=== PATIENT | female | born 1960 | race Caucasian/White ===

== ENCOUNTER 2016-04-17 03:50 | Emergency (ER) | payer OTHER ==
[2016-04-17] MEDS ORDERED: KETOROLAC 30 MG/ML 1 ML VIAL IVP STA ×2 (04:14→05:11)
[2016-04-17] MEDS ORDERED: SODIUM CHLORIDE 0.9% 1,000 ML IV STA (04:14)
--- NOTE | 2016-04-17 04:17 | ED ---
Abdominal Pain HPI - General Chief Complaint: Abdominal Pain Stated Complaint: left side/abd pain, sob Time Seen by Provider: 04/17/16 04:00 Source: patient, RN notes reviewed Mode of arrival: ambulatory Limitations: no limitations - History of Present Illness Initial Comments: This is a 55-year-old female who had the onset of left-sided flank pain yesterday. She states that get better got worse today. She states it's sharp and dull stabbing in nature. 10/10 severity associated with some sweats with it comes on it is episodic. She denies any cough or phlegm production no dysuria hematuria no history of diverticular disease though she had a colonoscopy in the past and states that she may be prone to it. No other complaints at this time. MD Complaint: abdominal pain, flank pain - Related Data Previous Rx's Medication Instructions Recorded Dicyclomine HCl [Bentyl] 20 mg PO QID #20 tab 04/17/16 Orphenadrine [Norflex] 100 mg PO Q12H #7 tablet.er 04/17/16 Allergies Allergy/AdvReac Type Severity Reaction Status Date / Time codeine Allergy Unknown Verified 12/06/15 11:51 Childhood Penicillins Allergy Unknown Verified 12/06/15 11:51 Childhood Review of Systems ROS Statement: Those systems with pertinent positive or pertinent negative responses have been documented in the HPI. ROS Other: All systems not noted in ROS Statement are negative. Past Medical History Past Medical History: No Reported History Additional Past Medical History / Comment(s): SEE DR DEL TORO'S HISTORY AND PHYSICAL History of Any Multi-Drug Resistant Organisms: None Reported Past Surgical History: Appendectomy Additional Past Surgical History / Comment(s): VEIN STRIPPING surgery, COLONOSCOPY Past Anesthesia/Blood Transfusion Reactions: No Reported Reaction Additional Past Anesthesia/Blood Transfusion Reaction / Comment(s): NEVER RECIEVED BLOOD. Past Psychological History: No Psychological Hx Reported Additional Psychological History / Comment(s): PT LIVES AT HOME WITH HANG. SHE DOES NOT WORK OUTSIDE THE HOME. SHE IS INDEPENDENT. SHE DRIVES A CAR. Smoking Status: Never smoker Past Alcohol Use History: Occasional Past Drug Use History: None Reported - Past Family History Father Family Medical History: Cancer Additional Family Medical History / Comment(s): HODGKINS LYMPHOMA Mother Family Medical History: No Reported History General Exam - General Exam Comments Initial Comments: This is a well-developed well-nourished awake alert oriented x3 female Limitations: no limitations General appearance: alert, in no apparent distress Head exam: Present: atraumatic, normocephalic, normal inspection Eye exam: Present: normal appearance, PERRL, EOMI. Absent: scleral icterus, conjunctival injection, periorbital swelling ENT exam: Present: normal exam, mucous membranes moist Neck exam: Present: normal inspection. Absent: tenderness, meningismus, lymphadenopathy Respiratory exam: Present: normal lung sounds bilaterally. Absent: respiratory distress, wheezes, rales, rhonchi, stridor Cardiovascular Exam: Present: regular rate, normal rhythm, normal heart sounds. Absent: systolic murmur, diastolic murmur, rubs, gallop, clicks GI/Abdominal exam: Present: soft, tenderness (And is palpation over left flank and left upper quadrant and midabdomen about her guarding no rebound), normal bowel sounds. Absent: distended, guarding, rebound, rigid, bruit, pulsatile mass, hernia Rectal exam: Present: deferred Extremities exam: Present: normal inspection, full ROM, normal capillary refill. Absent: tenderness, pedal edema, joint swelling, calf tenderness Back exam: Present: normal inspection, full ROM. Absent: CVA tenderness (R), CVA tenderness (L), muscle spasm, paraspinal tenderness, vertebral tenderness, rash noted Neurological exam: Present: alert, oriented X3, CN II-XII intact Psychiatric exam: Present: normal affect, normal mood Skin exam: Present: warm, dry, intact, normal color. Absent: rash Course Vital Signs 04/17/16 03:54 Temperature 97.2 F L Pulse Rate 99 Respiratory 18 Rate Blood Pressure 141/93 O2 Sat by Pulse 93 L Oximetry Medical Decision Making - Medical Decision Making I did have a long discussion with the patient and her regarding the findings the findings are likely secondary to some spastic colon though a musculoskeletal origin as not ruled out. Patient would like to go home she'll be discharged with instructions to continue with the Aleve as stated also some muscle relaxers oral fluids follow-up with her doctor and return when necessary - Lab Data Result diagrams: 04/17/16 04:04 04/17/16 04:04 Lab Results 01/30/17 01/30/17 01/30/17 Range/Units 04:04 04:04 04:04 WBC 5.4 (3.8-10.6) k/uL RBC 5.04 (3.80-5.40) m/uL Hgb 15.9 (11.4-16.0) gm/dL Hct 46.7 H (34.0-46.0) % MCV 92.7 (80.0-100.0) fL MCH 31.6 (25.0-35.0) pg MCHC 34.1 (31.0-37.0) g/dL RDW 13.0 (11.5-15.5) % Plt Count 132 L (150-450) k/uL Neutrophils % 68 % Lymphocytes % 19 % Monocytes % 8 % Eosinophils % 2 % Basophils % 0 % Neutrophils # 3.7 (1.3-7.7) k/uL Lymphocytes # 1.1 (1.0-4.8) k/uL Monocytes # 0.4 (0-1.0) k/uL Eosinophils # 0.1 (0-0.7) k/uL Basophils # 0.0 (0-0.2) k/uL Sodium 139 (137-145) mmol/L Potassium 3.8 (3.5-5.1) mmol/L Chloride 102 (98-107) mmol/L Carbon Dioxide 24 (22-30) mmol/L Anion Gap 13 mmol/L BUN 17 (7-17) mg/dL Creatinine 0.60 (0.52-1.04) mg/dL Est GFR (MDRD) Af Amer >60 (>60 ml/min/1.73 sqM) Est GFR (MDRD) Non-Af >60 (>60 ml/min/1.73 sqM) Glucose 126 H (74-99) mg/dL Calcium 9.3 (8.4-10.2) mg/dL Total Bilirubin 1.5 H (0.2-1.3) mg/dL AST 32 (14-36) U/L ALT 56 H (9-52) U/L Alkaline Phosphatase 88 (38-126) U/L Total Creatine Kinase 94 (30-135) U/L CK-MB (CK-2) 2.8 H* (0.0-2.4) ng/mL CK-MB (CK-2) Rel Index 3.0 Troponin I <0.012 (0.000-0.034) ng/mL Total Protein 7.4 (6.3-8.2) g/dL Albumin 4.4 (3.5-5.0) g/dL Amylase 47 (30-110) U/L Lipase 87 (23-300) U/L Urine Color Urine Appearance (Clear) Urine pH (5.0-8.0) Ur Specific Mitchell (1.001-1.035) Urine Protein (Negative) Urine Glucose (UA) (Negative) Urine Ketones (Negative) Urine Blood (Negative) Urine Nitrate (Negative) Urine Bilirubin (Negative) Urine Urobilinogen (<2.0) mg/dL Ur Leukocyte Esterase (Negative) Urine RBC (0-5) /hpf Urine WBC (0-5) /hpf Ur Squamous Epith Cells (0-4) /hpf Urine Mucus (None) /hpf 04/17/16 Range/Units 04:04 WBC (3.8-10.6) k/uL RBC (3.80-5.40) m/uL Hgb (11.4-16.0) gm/dL Hct (34.0-46.0) % MCV (80.0-100.0) fL MCH (25.0-35.0) pg MCHC (31.0-37.0) g/dL RDW (11.5-15.5) % Plt Count (150-450) k/uL Neutrophils % % Lymphocytes % % Monocytes % % Eosinophils % % Basophils % % Neutrophils # (1.3-7.7) k/uL Lymphocytes # (1.0-4.8) k/uL Monocytes # (0-1.0) k/uL Eosinophils # (0-0.7) k/uL Basophils # (0-0.2) k/uL Sodium (137-145) mmol/L Potassium (3.5-5.1) mmol/L Chloride (98-107) mmol/L Carbon Dioxide (22-30) mmol/L Anion Gap mmol/L BUN (7-17) mg/dL Creatinine (0.52-1.04) mg/dL Est GFR (MDRD) Af Amer (>60 ml/min/1.73 sqM) Est GFR (MDRD) Non-Af (>60 ml/min/1.73 sqM) Glucose (74-99) mg/dL Calcium (8.4-10.2) mg/dL Total Bilirubin (0.2-1.3) mg/dL AST (14-36) U/L ALT (9-52) U/L Alkaline Phosphatase (38-126) U/L Total Creatine Kinase (30-135) U/L CK-MB (CK-2) (0.0-2.4) ng/mL CK-MB (CK-2) Rel Index Troponin I (0.000-0.034) ng/mL Total Protein (6.3-8.2) g/dL Albumin (3.5-5.0) g/dL Amylase (30-110) U/L Lipase (23-300) U/L Urine Color Yellow Urine Appearance Clear (Clear) Urine pH 5.5 (5.0-8.0) Ur Specific Mitchell 1.018 (1.001-1.035) Urine Protein Trace H (Negative) Urine Glucose (UA) Negative (Negative) Urine Ketones Negative (Negative) Urine Blood Trace H (Negative) Urine Nitrate Negative (Negative) Urine Bilirubin Negative (Negative) Urine Urobilinogen <2.0 (<2.0) mg/dL Ur Leukocyte Esterase Negative (Negative) Urine RBC <1 (0-5) /hpf Urine WBC 1 (0-5) /hpf Ur Squamous Epith Cells 5 H (0-4) /hpf Urine Mucus Rare H (None) /hpf - Radiology Data Radiology results: report reviewed (I did review the imaging and report there was some evidence of some inflammation around the descending colon some diverticulosis with noted no other significant findings.), image reviewed Disposition Clinical Impression: Abdominal pain, Spastic colon Disposition: HOME SELF-CARE Condition: Good Instructions: Abdominal Pain (ED), Irritable Bowel Syndrome (ED) Prescriptions: Dicyclomine HCl [Bentyl] 20 mg PO QID #20 tab Orphenadrine [Norflex] 100 mg PO Q12H #7 tablet.er
[2016-04-17 04:28] LABS: Basophils % (A) 0 %; CH 32.2; CHCM 34.9; Eosinophils # (A) 0.1 k/uL (0-0.7); Eosinophils % (A) 2 %; HCT 46.7 % (34.0-46.0); HDW 2.24; HGB 15.9 gm/dL (11.4-16.0); Luc # (Auto) 0.15; Luc % (Auto) 3; Lymphocytes # (A) 1.1 k/uL (1.0-4.8); Lymphocytes % (A) 19 %; MCH 31.6 pg (25.0-35.0); MCHC 34.1 g/dL (31.0-37.0); MCV 92.7 fL (80.0-100.0); Mean Platelet Volume 6.9; Monocytes # (A) 0.4 k/uL (0-1.0); Monocytes % (A) 8 %; Neutrophils # (A) 3.7 k/uL (1.3-7.7); Neutrophils % (A) 68 %; RBC 5.04 m/uL (3.80-5.40); WBC 5.4 k/uL (3.8-10.6); WBC (Perox) 5.55
[2016-04-17 04:40] LABS: ALT 56 U/L (9-52); AST 32 U/L (14-36); Alkaline Phosphatase 88 U/L (38-126); Amylase 47 U/L (30-110); Anion Gap 13 mmol/L; Blood Urea Nitrogen 17 mg/dL (7-17); Calcium 9.3 mg/dL (8.4-10.2); Carbon Dioxide 24 mmol/L (22-30); Chloride 102 mmol/L (98-107); Glucose 126 mg/dL (74-99); Non-African American GFR(MDRD) >60 (>60 ml/min/1.73 sqM); Potassium 3.8 mmol/L (3.5-5.1); Sodium 139 mmol/L (137-145); Total Bilirubin 1.5 mg/dL (0.2-1.3); Total Protein 7.4 g/dL (6.3-8.2)
--- NOTE | 2016-04-17 04:43 | XR ---
EXAMINATION TYPE: XR chest 2V DATE OF EXAM: 04/17/2016 4:35 AM COMPARISON: NONE HISTORY: Abdominal pain TECHNIQUE: Frontal and lateral views of the chest are obtained. FINDINGS: Heart and mediastinum are normal. Lungs are clear of consolidation. There is small linear density in the left lower lobe. There is no pleural effusion. Bony thorax is intact. IMPRESSION: Minimal subsegmental atelectasis in the left lower lobe. Normal heart.
--- NOTE | 2016-04-17 04:44 | XR ---
EXAMINATION TYPE: XR KUB DATE OF EXAM: 04/17/2016 4:35 AM COMPARISON: NONE HISTORY: Left-sided abdomen pain TECHNIQUE: 2 views FINDINGS: There is no sign of intestinal obstruction or pneumoperitoneum. Fecal pattern is normal. Th ere are no pathologic calcifications over the kidneys. Lung bases are clear. IMPRESSION: Nonacute abdomen.
[2016-04-17 04:54] LABS: Appearance,Urine Clear (Clear); Bilirubin,Urine Negative (Negative); Creatine Kinase 94 U/L (30-135); Glucose,Urine (UA) Negative (Negative); Ketones,Urine Negative (Negative); Leukocyte Esterase,Urine Negative (Negative); Mucus,Urine Rare /hpf; Nitrite,Urine Negative (Negative); PH, Urine 5.5 (5.0-8.0); Particle Count 2502; Protein,Urine Trace (Negative); RBC,Urine <1 /hpf (0-5); Specific Gravity,Urine 1.018 (1.001-1.035); Squamous Epithelial Cell,Urine 5 /hpf (0-4); UA Billing (MACRO vs. MICRO) MICRO; Urobilinogen,Urine <2.0 mg/dL (<2.0); WBC,Urine 1 /hpf (0-5)
[2016-04-17 05:06] LABS: Troponin I <0.012 ng/mL (0.000-0.034)
--- NOTE | 2016-04-17 05:17 | CT ---
EXAMINATION TYPE: CT abdomen pelvis wo con DATE OF EXAM: 04/17/2016 5:11 AM COMPARISON: NONE HISTORY: Left sided abd pain, hx: appendectomy CT DLP: 266.40 mGycm Automated exposure control for dose reduction was used. TECHNIQUE: Helical acquisition of images was performed from the lung bases through the pelvis. FINDINGS: Lung bases are clear of consolidation. There is no pleural effusion. Heart size is normal. There is a small hiatal hernia. Liver spleen pancreas gallbladder appear normal. Bile ducts are not dilated. There is no adrenal mass . Kidneys have normal size and contour. There is no hydronephrosis. There are some mild inflammatory changes around the descending colon. There are left colon diverticula. There is sigmoid moderate dive rticulosis. There is no free fluid. There is no evidence of a pelvic mass. Bladder distends smoothly. Appendix is not seen. There is no sign of appendicitis. IMPRESSION: THERE IS EVIDENCE OF FOCAL DIVERTICULITIS IN THE MID DESCENDING COLON. MODERATE COLONIC DIVERTICULOSI S. NO EVIDENCE OF RENAL STONE OR OBSTRUCTION.
[2016-04-17 05:35] LABS: Creatine Kinase MB 2.8 ng/mL (0.0-2.4)
[2016-04-17] MEDS ORDERED: ACETAMINOPHEN IV (For NPO) 1,000 MG in SALINE 1 100ML.BAG IVPB STA (06:01)
[2016-04-17] MEDS ORDERED: DICYCLOMINE 10 MG/ML 2 ML AMP IM STA (06:02)
[2016-04-17 07:15] VITALS: BP 129/74; PULSE 77; RESP 16; TEMP 98
== END 2016-04-17 07:00 | disposition home or self-care (01) ==
LOC: EC 03:50
DX: K57.30 Diverticulosis of large intestine without perforation or abscess without bleeding (principal); Z88.0 Allergy status to penicillin; Z88.5 Allergy status to narcotic agent; Z79.899 Other long term (current) drug therapy
CPT/HCPCS: 99284; 96372; 96374; 96376; 96361; 36415; 80053; 82150; 82550; 82553; 83690; 84484; 85025; 81001; 71020; 74000; 74176; J0500; J1885; J0131

== ENCOUNTER → 2017-11-03 | Outpatient (CLI) | payer OTHER ==
--- NOTE | 2017-11-03 09:58 | XR ---
EXAMINATION TYPE: XR ankle complete LT DATE OF EXAM: 11/03/2017 CLINICAL HISTORY: Pain, swelling, and limited movement for a few days. TECHNIQUE: Frontal, lateral and oblique images of the left ankle are obtained. COMPARISON: None. FINDINGS: There is no acute fracture/dislocation evident in the left ankle. The ankle mortise appea rs within normal limits. Mild spurring from the lateral malleolus is present. The overlying soft tis mateusz appears unremarkable. IMPRESSION: There is no acute fracture or dislocation in the left ankle. No significant soft tissue swelling noted.
== END | disposition home or self-care (01) ==
LOC: RADXRMAIN 08:46
PROVIDERS: ATTEND Physician Assistant
DX: M25.572 Pain in left ankle and joints of left foot (principal)

== ENCOUNTER → 2018-03-14 | Outpatient (CLI) | payer OTHER ==
--- NOTE | 2018-03-14 08:12 | CT ---
EXAMINATION TYPE: CT chest wo con DATE OF EXAM: 03/14/2018 COMPARISON: Chest 02/14/2018 HISTORY: 57-year-old female Fluid in lungs, severe coughing TECHNIQUE: Contiguous axial scanning of the chest without IV contrast. Coronal and sagittal reconstru ctions performed. CT DLP: 308.5 mGycm Automated exposure control for dose reduction was used. FINDINGS: Heart normal size without pericardial effusion. The upper descending thoracic aorta is borderline ectatic at 3.0 cm. There is conventional arterial s upply and anatomy. A few small mediastinal lymph nodes are noted. No thoracic lymphadenopathy by CT size criteria. Visualized upper abdomen shows marked fatty infiltration of the liver and sludge in the gallbladder l umen. Evaluation of the lungs shows minimal biapical pleural parenchymal scarring. The central airways are clear. No consolidation or pleural effusion. No abnormal interstitial thickening. Bones: No osseous destructive process. IMPRESSION: NO SPECIFIC ABNORMALITY IDENTIFIED OF THE CHEST. MARKED HEPATIC STEATOSIS. CORRELATE WITH LFT's, LIPI D PROFILE, AND PATIENT RISK FACTORS.
== END | disposition home or self-care (01) ==
LOC: RADCTMAIN 06:57
PROVIDERS: ATTEND Family Medicine
DX: R05 Cough (principal)
CPT/HCPCS: 71250

== ENCOUNTER → 2018-03-16 | Outpatient (CLI) | payer OTHER ==
[2018-03-16 08:30] LABS: Basophils % (A) 1 %; Eosinophils # (A) 0.2 k/uL (0-0.7); Eosinophils % (A) 3 %; HCT 49.7 % (34.0-46.0); HGB 16.4 gm/dL (11.4-16.0); Lymphocytes % (A) 20 %; MCH 31.8 pg (25.0-35.0); MCV 96.5 fL (80.0-100.0); Mean Platelet Volume 7.6; Monocytes # (A) 0.3 k/uL (0-1.0); Monocytes % (A) 5 %; Neutrophils # (A) 3.2 k/uL (1.3-7.7); Neutrophils % (A) 68 %; Platelet Count 127 k/uL (150-450); RBC 5.15 m/uL (3.80-5.40); RDW 13.9 % (11.5-15.5); WBC 4.7 k/uL (3.8-10.6)
[2018-03-16 17:02] LABS: Anion Gap 8.5 mmol/L (4.00-12.00); Calcium 9.3 mg/dL (8.7-10.3); Carbon Dioxide 24.5 mmol/L (21.6-31.8); Potassium 4.5 mmol/L (3.5-5.5)
[2018-03-18 03:13] LABS: Mycoplasma IgM Antibody 0.11 INDEX (<=0.90)
== END | disposition home or self-care (01) ==
LOC: LABWHC1 08:04
PROVIDERS: ATTEND Nurse Practitioner Family
DX: R05 Cough (principal)
CPT/HCPCS: 36415; 80048; 85025; 86738

== ENCOUNTER → 2018-03-23 | Outpatient (CLI) | payer OTHER ==
[2018-03-23 08:33] LABS: Basophils % (A) 1 %; Eosinophils # (A) 0.1 k/uL (0-0.7); Eosinophils % (A) 1 %; HCT 50.7 % (34.0-46.0); HGB 16.4 gm/dL (11.4-16.0); Lymphocytes % (A) 28 %; MCH 31.8 pg (25.0-35.0); MCHC 32.4 g/dL (31.0-37.0); Monocytes # (A) 0.7 k/uL (0-1.0); Monocytes % (A) 11 %; Neutrophils # (A) 4.1 k/uL (1.3-7.7); Neutrophils % (A) 58 %; RBC 5.17 m/uL (3.80-5.40); RDW 13.9 % (11.5-15.5)
[2018-03-23 08:52] LABS: Platelet Count 198 k/uL (150-450)
[2018-03-23 17:13] LABS: Albumin 4.6 g/dL (3.80-4.90); Albumin/Globulin Ratio 2.42 (1.20-2.10); Anion Gap 13.4 mmol/L (4.00-12.00); Calcium 9.7 mg/dL (8.7-10.3); Carbon Dioxide 27.6 mmol/L (21.6-31.8); Globulin 1.9 g/dL (1.6-3.3); Potassium 4.6 mmol/L (3.5-5.5); Total Bilirubin 1.5 mg/dL (0.2-1.2); Total Protein 6.5 g/dL (6.2-8.2)
== END | disposition home or self-care (01) ==
LOC: LABWHC1 08:01
PROVIDERS: ATTEND Family Medicine
DX: R05 Cough (principal); I10 Essential (primary) hypertension
CPT/HCPCS: 36415; 80053; 85025

== ENCOUNTER → 2018-03-27 | Outpatient (CLI) | payer OTHER ==
[2018-03-27 17:18] LABS: Hepatitis A Antibody IgM Non-Reactive (Non-Reactive); Hepatitis B Core IgM Non-Reactive (Non-Reactive)
[2018-03-27 18:26] LABS: Albumin 4.7 g/dL (3.80-4.90); Albumin/Globulin Ratio 2.61 (1.20-2.10); Bilirubin, Conjugated 0.3 mg/dL (0.20-0.40); Bilirubin,Unconjugated 1.1 mg/dL; Globulin 1.8 g/dL (1.6-3.3); Total Bilirubin 1.4 mg/dL (0.3-1.2); Total Protein 6.5 g/dL (6.2-8.2)
== END | disposition home or self-care (01) ==
LOC: LABWHC1 08:01
PROVIDERS: ATTEND Family Medicine
DX: R74.8 Abnormal levels of other serum enzymes (principal)
CPT/HCPCS: 36415; 80074; 80076; 82977

== ENCOUNTER → 2018-04-06 | Outpatient (CLI) | payer OTHER ==
[2018-04-06 17:05] LABS: Total Bilirubin 1.1 mg/dL (0.3-1.2)
== END | disposition home or self-care (01) ==
LOC: LABWHC1 08:17
PROVIDERS: ATTEND Family Medicine
DX: R79.89 Other specified abnormal findings of blood chemistry (principal)
CPT/HCPCS: 36415; 82247; 82977; 84450; 84460

== ENCOUNTER → 2018-04-23 | Outpatient (CLI) | payer OTHER | END | disposition home or self-care (01) | LOC: LABWHC1 08:23 | PROVIDERS: ATTEND Family Medicine | DX: R74.8 Abnormal levels of other serum enzymes (principal) | CPT/HCPCS: 36415; 84450; 84460 ==

== ENCOUNTER → 2018-05-09 | Outpatient (CLI) | payer OTHER ==
[2018-05-09 18:12] LABS: ALT 51 U/L (8-44); AST 40 U/L (13-35)
== END | disposition home or self-care (01) ==
LOC: LABWHC1 09:26
PROVIDERS: ATTEND Family Medicine
DX: R74.8 Abnormal levels of other serum enzymes (principal)
CPT/HCPCS: 36415; 84450; 84460

== ENCOUNTER → 2018-05-31 | Outpatient (CLI) | payer OTHER ==
[2018-05-31 09:28] LABS: Basophils % (A) 0 %; Eosinophils # (A) 0.1 k/uL (0-0.7); Eosinophils % (A) 1 %; HCT 45.1 % (34.0-46.0); HGB 14.8 gm/dL (11.4-16.0); Lymphocytes # (A) 1.7 k/uL (1.0-4.8); Lymphocytes % (A) 25 %; MCH 31.2 pg (25.0-35.0); MCHC 32.8 g/dL (31.0-37.0); MCV 95.2 fL (80.0-100.0); Mean Platelet Volume 6.5; Monocytes # (A) 0.5 k/uL (0-1.0); Monocytes % (A) 8 %; Neutrophils # (A) 4.4 k/uL (1.3-7.7); Neutrophils % (A) 64 %; Platelet Count 232 k/uL (150-450); RBC 4.74 m/uL (3.80-5.40); RDW 13.5 % (11.5-15.5); WBC 6.9 k/uL (3.8-10.6)
[2018-05-31 16:56] LABS: LDL Cholesterol,Calculated 89.4 mg/dL (0.0-131.0); VLDL Calculation 20.6 mg/dL (5.00-40.00)
== END | disposition home or self-care (01) ==
LOC: LABWHC1 08:22
PROVIDERS: ATTEND Family Medicine
DX: E78.00 Pure hypercholesterolemia, unspecified (principal); R94.5 Abnormal results of liver function studies
CPT/HCPCS: 36415; 80061; 82103; 84450; 84460; 85025

== ENCOUNTER → 2018-06-28 | Outpatient (CLI) | payer OTHER ==
[2018-06-28 08:03] LABS: ALT 56 U/L (9-52); AST 28 U/L (14-36)
--- NOTE | 2018-06-28 10:30 | BD ---
EXAMINATION TYPE: Axial Bone Density DATE OF EXAM: 06/28/2018 COMPARISON: NONE CLINICAL HISTORY: Height: 5 FT 6 IN Weight: 158 FRAX RISK QUESTIONS: RISK FACTORS HISTORY OF: Active: YES Postmenopausal woman: AGE [age] MEDICATIONS: Prednisone or other steroids: PREDISONE How Lon MONTHS Additional Medications: PREDISONE FOR LAST 2 MONTHS FOR A COUGH ,AMLODIPINE Additional History: EXAM MEASUREMENTS: Bone mineral densitometry was performed using the [employer]. Bone mineral density as measured about the Lumbar spine is: ----- L1-L4(G/cm2): 1.235 T Score Values are as follows: ----- L2: 0.4 ----- L3: 0.8 ----- L4: 0.3 ----- L1-L4: 0.5 BASELINE Bone mineral density about the R hip (g/cm2): 0.973 Bone mineral density about the L hip (g/cm2): 0.965 T Score values are as follows: -----R Neck: -0.5 -----L Neck: -0.5 -----R Total: -0.3 -----L Total: -0.6 BASELINE IMPRESSION: No evidence for osteoporosis or osteopenia. NOTE: T-SCORE=SD OF THE YOUNG ADULT MEAN.
--- NOTE | 2018-07-01 12:09 | MM ---
Reason for exam: screening (asymptomatic). Last mammogram was performed 2 years and 6 months ago. History: Patient is postmenopausal. Benign MG stereo VAD BX addl LT of the left breast, April 20, 2015. Benign MG stereo VAD BX LT of the left breast, April 20, 2015. Physical Findings: A clinical breast exam by your physician is recommended on an annual basis and results should be correlated with mammographic findings. MG 3D Screening Mammo W/Cad Bilateral CC and MLO view(s) were taken. Prior study comparison: December 31, 2015, left breast MG diagnostic mammo LT w CAD. April 08, 2015, left breast MG 3d work up w/cad LT. March 29, 2015, bilateral MG screening mammo w CAD. The breast tissue is heterogeneously dense. This may lower the sensitivity of mammography. Previous mammotome biopsy in the left breast x 2. Asymmetric breast tissue in the right medial breast, suspect clips. There is no discrete abnormality. ASSESSMENT: Benign, BI-RAD 2 RECOMMENDATION: Routine screening mammogram of both breasts in 1 year.
== END | disposition home or self-care (01) ==
LOC: RADMAMWWP 06:59
PROVIDERS: ATTEND Family Medicine
DX: Z12.31 Encounter for screening mammogram for malignant neoplasm of breast (principal); R74.8 Abnormal levels of other serum enzymes; Z13.820 Encounter for screening for osteoporosis
CPT/HCPCS: 36415; 77063; 77067; 77080; 84450; 84460

== ENCOUNTER → 2018-10-31 | Outpatient (CLI) | payer OTHER ==
[2018-10-31 10:17] LABS: Basophils % (A) 1 %; Eosinophils # (A) 0.1 k/uL (0-0.7); Eosinophils % (A) 2 %; HCT 48.4 % (34.0-46.0); HGB 15.7 gm/dL (11.4-16.0); Lymphocytes % (A) 23 %; MCHC 32.5 g/dL (31.0-37.0); MCV 95.4 fL (80.0-100.0); Mean Platelet Volume 7.5; Monocytes # (A) 0.4 k/uL (0-1.0); Monocytes % (A) 9 %; Neutrophils # (A) 2.6 k/uL (1.3-7.7); Neutrophils % (A) 62 %; Platelet Count 109 k/uL (150-450); RBC 5.07 m/uL (3.80-5.40); RDW 13.5 % (11.5-15.5); WBC 4.3 k/uL (3.8-10.6)
[2018-10-31 15:57] LABS: African American GFR (CKD) 112.3 (60.0-200.0); Albumin 4.6 g/dL (3.80-4.90); Albumin/Globulin Ratio 2.42 (1.60-3.17); Anion Gap 8.4 mmol/L (4.00-12.00); BUN/Creat Ratio 22.86 Ratio (12.00-20.00); Calcium 9.3 mg/dL (8.7-10.3); Carbon Dioxide 26.6 mmol/L (21.6-31.8); Globulin 1.9 g/dL (1.6-3.3); Total Bilirubin 1.1 mg/dL (0.2-1.2); Total Protein 6.5 g/dL (6.2-8.2)
== END | disposition home or self-care (01) ==
LOC: LABWHC1 09:27
PROVIDERS: ATTEND Family Medicine
DX: K76.89 Other specified diseases of liver (principal)
CPT/HCPCS: 36415; 80053; 85025

== ENCOUNTER → 2018-11-07 | Outpatient (CLI) | payer OTHER ==
[2018-11-07 10:24] LABS: Mean Platelet Volume 7.7; Platelet Count 117 k/uL (150-450)
[2018-11-07 15:44] LABS: ALT 68 U/L (8-44); AST 47 U/L (13-35)
== END | disposition home or self-care (01) ==
LOC: LABWHC1 09:39
PROVIDERS: ATTEND Family Medicine
DX: R74.8 Abnormal levels of other serum enzymes (principal); D72.819 Decreased white blood cell count, unspecified
CPT/HCPCS: 36415; 80074; 82977; 84450; 84460; 85049

== ENCOUNTER → 2018-11-14 | Outpatient (CLI) | payer OTHER ==
--- NOTE | 2018-11-14 07:41 | US ---
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 GLAND SIZE: Right Lobe: 4.2 x 0.9 x 1.4 cm Overall Parenchyma: homogenous Left Lobe: 3.9 x 0.9 x 1.2 cm Overall Parenchyma: homogeneous Isthmus Thickness: 0.2cm NODULES RIGHT: # of nodules measured on right: 1 1. 0.6 x 0.9 x 0.5 centimeter hypoechoic solid nodule at the lower pole with poorly defined margins . This nodule is taller than wide and shows no intranodular vascularity. Prior size: no prior LEFT: # of nodules measured on left: 0 ISTHMUS: # of nodules measured in the isthmus: 0 Bilateral neck scanned, no evidence of lymphadenopathy. IMPRESSION: Solitary 9 mm solid right thyroid nodule for which surveillance thyroid ultrasound is recommended in 12 months.
== END | disposition home or self-care (01) ==
LOC: RADUSWWP 07:01
PROVIDERS: ATTEND Family Medicine
DX: E04.1 Nontoxic single thyroid nodule (principal); F45.8 Other somatoform disorders
CPT/HCPCS: 76536

== ENCOUNTER 2019-02-08 11:06 | Emergency (ER) | payer OTHER ==
[2019-02-08] MEDS ORDERED: LIDOCAINE 5% PATCH TOPICAL STA (11:37)
[2019-02-08] MEDS ORDERED: KETOROLAC 30 MG/ML 1 ML VIAL IM STA (11:41)
--- NOTE | 2019-02-08 11:44 | ED ---
General Adult HPI - General Chief complaint: Extremity Injury, Lower Stated complaint: Fall-Ankle Injury Time Seen by Provider: 02/08/19 11:21 Source: patient Mode of arrival: wheelchair Limitations: no limitations - History of Present Illness Initial comments: Dictation was produced using [employer] dictation software. please excuse any g rammatical, word or spelling errors. Chief Complaint: 58-year-old male presents with right calf pain. History of Present Illness: Chin is a 58-year-old female. Yesterday she was carrying a large bin of [place] decorations on the stairs. She got to the last step when she stumbled slightly. Patient planted her right foot on the ground vigorously. After that incident she noticed that she had some right- sided calf pain. Patient localizes the pain to the right lateral calf area. Patient said able to bear weight on it. Denies any rating symptoms. Patient denies any pain of the Achilles area. She does complain of some tenderness to the right lateral ankle. She has no foot pain. The numbness and paresthesias of the foot. Denies any swelling to the leg. No popliteal pain. The ROS documented in this emergency department record has been reviewed and confirmed by me. Those systems with pertinent positive or negative responses have been documented in the HPI. All other systems are other negative and/or noncontributory. PHYSICAL EXAM: General Impression: Alert and oriented x3, not in acute distress HEENT: Normocephalic atraumatic, extra-ocular movements intact, pupils equal and reactive to light bilaterally, mucous membranes moist. Cardiovascular: Heart regular rate and rhythm, S1&S2 audible, no murmurs, rubs or gallops Chest: Lungs clear to auscultation bilaterally, no rhonchi, no wheeze, no rales Abdomen: Bowel sounds present, abdomen soft, non-tender, non-distended, no organomegaly Musculoskeletal: Pulses present and equal in all extremities, no peripheral edema Right lower extremity: Tenderness to the right lateral gastrocnemius muscle. Plantar flexion is intact. No swelling of the right leg compared to the left. Mild tenderness over the anterior talofibular ligament. No midfoot tenderness. Motor: no focal deficits noted Neurological: CN II-XII grossly intact, no focal motor or sensory deficits noted Skin: Intact with no visualized rashes Psych: Normal affect and mood ED course: 58 year old female presents with clinical presentation consistent with right calf strain and right ankle sprain. Vital signs upon arrival shows heart rate 102, rest of vital signs within acceptable limits. Right tib-fib x-ray shows probably distress fracture of the proximal third fibula. Right ankle is unremarkable. Patient is placed in a splint. Patient told to remain nonweightbearing until evaluated by orthopedic surgeon. Patient warned of symptoms of compartment syndrome. Return parameters discussed. Patient clear for discharge. She has a set of crutches at home that she can use. - Related Data Previous Rx's Medication Instructions Recorded Dicyclomine HCl [Bentyl] 20 mg PO QID #20 tab 04/17/16 Orphenadrine [Norflex] 100 mg PO Q12H #7 tablet.er 04/17/16 Allergies Allergy/AdvReac Type Severity Reaction Status Date / Time codeine Allergy Unknown Verified 12/06/15 11:51 Childhood Penicillins Allergy Unknown Verified 12/06/15 11:51 Childhood Review of Systems ROS Statement: Those systems with pertinent positive or pertinent negative responses have been documented in the HPI. ROS Other: All systems not noted in ROS Statement are negative. Past Medical History Past Medical History: No Reported History Additional Past Medical History / Comment(s): SEE DR DEL TORO'S HISTORY AND PHYSICAL History of Any Multi-Drug Resistant Organisms: None Reported Past Surgical History: Appendectomy Additional Past Surgical History / Comment(s): VEIN STRIPPING surgery, COLONOSCOPY Past Anesthesia/Blood Transfusion Reactions: No Reported Reaction Additional Past Anesthesia/Blood Transfusion Reaction / Comment(s): NEVER RECIEVED BLOOD. Past Psychological History: No Psychological Hx Reported Smoking Status: Never smoker Past Alcohol Use History: Occasional Past Drug Use History: None Reported - Past Family History Father Family Medical History: Cancer Additional Family Medical History / Comment(s): HODGKINS LYMPHOMA Mother Family Medical History: No Reported History General Exam Limitations: no limitations Course Vital Signs 02/08/19 11:11 Temperature 97.8 F Pulse Rate 102 H Respiratory 20 Rate Blood Pressure 157/99 O2 Sat by Pulse 94 L Oximetry Disposition Clinical Impression: Fibula fracture Disposition: HOME SELF-CARE Condition: Good Instructions (If sedation given, give patient instructions): Leg Fracture (ED) Is patient prescribed a controlled substance at d/c from ED?: No Referrals: [facility] [Provider Group] - 1-2 days Time of Disposition: 13:39
--- NOTE | 2019-02-08 13:24 | XR ---
EXAMINATION TYPE: XR tibia fibula RT, XR ankle complete RT DATE OF EXAM: 02/08/2019 COMPARISON: NONE HISTORY: Right ankle pain TECHNIQUE: 2 views right tibia/fibula. 3 views right ankle. FINDINGS/IMPRESSION: Right tibia/fibula: Mildly displaced oblique fracture of the proximal third fibular diaphysis. No tib ial fracture. Right ankle: No fracture about the ankle. Cortical irregularity of the lateral distal malleoli appear s chronic. Ankle mortise is congruent. Mild capsular distention at the ankle.
[2019-02-08 13:57] VITALS: BP 145/99; PULSE 97; RESP 19; TEMP 97.9
== END 2019-02-08 13:55 | disposition home or self-care (01) ==
LOC: EC 11:06
DX: S82.431A Displaced oblique fracture of shaft of right fibula, initial encounter for closed fracture (principal); Z88.0 Allergy status to penicillin; Z88.5 Allergy status to narcotic agent; W10.9XXA Fall (on) (from) unspecified stairs and steps, initial encounter
CPT/HCPCS: 73590; 73610; 99283; 29515; 96372; J1885

== ENCOUNTER → 2019-04-10 | Outpatient (CLI) | payer OTHER ==
--- NOTE | 2019-04-10 10:19 | CT ---
EXAMINATION TYPE: CT angio chest DATE OF EXAM: 04/10/2019 COMPARISON: 03/14/2018 HISTORY: Thoracic Aortic Aneurysm, without rupture CT DLP: 174.6 mGycm CONTRAST: CTA thoracic aorta with 3-D reconstruction is performed and with IV Contrast, patient injected with 8 0 mL of Isovue 370. Contrast CTA of the thoracic aorta was performed from the lung apex through the upper abdomen. 3D re construction imaging obtained at a separate workstation. CT Chest: THORACIC AORTA: No evidence for thoracic aortic aneurysm. Mild atheromatous changes seen. There is n o evidence for dissection or periaortic collection. LUNGS: The lungs are clear and free of infiltrate or atelectasis. No pulmonary nodule or mass is det ected. No pleural effusion or CT evidence of interstitial lung disease. MEDIASTINUM: No evidence for mediastinal hematoma. The heart is not enlarged. No evidence for med iastinal mass or adenopathy. HILAR STRUCTURES: No evidence for mass. No hilar adenopathy is appreciated. OTHER: No significant abnormality. IMPRESSION- No evidence for aneurysm.
== END | disposition home or self-care (01) ==
LOC: RADCTMAIN 09:13
PROVIDERS: ATTEND Surgery
DX: I71.2 Thoracic aortic aneurysm, without rupture (principal); Z88.0 Allergy status to penicillin; Z88.5 Allergy status to narcotic agent
CPT/HCPCS: 71275; Q9967

== ENCOUNTER → 2019-05-16 | Outpatient (CLI) | payer OTHER ==
--- NOTE | 2019-05-16 07:59 | US ---
EXAMINATION TYPE: US thyroid st tissue head/neck DATE OF EXAM: 05/16/2019 COMPARISON: US 11/14/2018 CLINICAL HISTORY: E04.1 Thyroid nodule. Followup, no medications GLAND SIZE: Right Lobe: 4.1 x 1.6 x 1.0 cm Overall Parenchyma: primarily homogenous Left Lobe: 4.0 x 1.4 x 0.8 cm Overall Parenchyma: homogeneous Isthmus Thickness: 0.3 cm NODULES RIGHT: No discreet nodules are seen today LEFT: # of nodules measured on left: 1 1. 0.5 X 0.4 x 0.3 cm hypoechoic mixed nodule at the mid pole with well-defined margins; interrupte d peripheral calcification. There appears to be inspissated colloid. This nodule is wider than tall a nd shows no intranodular vascularity. ISTHMUS: # of nodules measured in the isthmus: 0 Bilateral neck scanned: no evidence of lymphadenopathy. IMPRESSION: Subcentimeter left thyroid nodule is favored to represent a colloid cyst as there appears to be a punctate focus of intranodular colloid. Correlate cysts or benign. The previously seen subce ntimeter right thyroid nodule is no longer discretely identified.
== END | disposition home or self-care (01) ==
LOC: RADUSWWP 06:56
PROVIDERS: ATTEND Family Medicine
DX: E04.1 Nontoxic single thyroid nodule (principal)
CPT/HCPCS: 76536

== ENCOUNTER → 2019-11-11 | Outpatient (CLI) | payer OTHER ==
--- NOTE | 2019-11-11 15:51 | US ---
EXAMINATION TYPE: US thyroid st tissue head/neck DATE OF EXAM: 11/11/2019 COMPARISON: US CLINICAL HISTORY: E04.1 Non-toxic thyroid nodule. F/U nodules GLAND SIZE: Right Lobe: 3.9 x 1.1 x 1.5 cm Overall Parenchyma: homogenous Left Lobe: 4.3 x 1.1 x 1.2 cm Overall Parenchyma: homogeneous Isthmus Thickness: 0.2 cm NODULES LEFT: # of nodules measured on left: 1 1. 0.5 X 0.3 x 0.4 cm hypoechoic mixed nodule at the mid pole with well-defined margins; This nodu le is wider than tall and shows intranodular vascularity. Prior size: 0.5 x 0.3 x 0.4 cm Bilateral neck scanned, no evidence of lymphadenopathy. Stable sub-centimeter nodule on left. IMPRESSION: Nonspecific thyroid nodularity.
== END | disposition home or self-care (01) ==
LOC: RADUSWWP 15:30
PROVIDERS: ATTEND Family Medicine
DX: E04.1 Nontoxic single thyroid nodule (principal)
CPT/HCPCS: 76536

== ENCOUNTER → 2019-11-12 | Outpatient (CLI) | payer OTHER ==
[2019-11-12 10:48] LABS: HCT 45.3 % (34.0-46.0); HGB 14.8 gm/dL (11.4-16.0); MCH 31.5 pg (25.0-35.0); MCHC 32.8 g/dL (31.0-37.0); MCV 96.1 fL (80.0-100.0); Mean Platelet Volume 8.1; Platelet Count 157 k/uL (150-450); RBC 4.71 m/uL (3.80-5.40); RDW 12.9 % (11.5-15.5); WBC 4.1 k/uL (3.8-10.6)
[2019-11-12 11:00] LABS: Appearance,Urine Clear (Clear); Bilirubin,Urine Negative (Negative); Blood,Urine Negative (Negative); Color,Urine Yellow; Glucose,Urine (UA) Negative (Negative); Ketones,Urine Negative (Negative); Leukocyte Esterase,Urine Negative (Negative); Nitrite,Urine Negative (Negative); Protein,Urine Negative (Negative); Specific Gravity,Urine 1.014 (1.001-1.035); Urobilinogen,Urine <2.0 mg/dL (<2.0)
[2019-11-12 16:56] LABS: African American GFR (CKD) 82.3 (60.0-200.0); Albumin 4.6 g/dL (3.80-4.90); Albumin/Globulin Ratio 2.19 (1.60-3.17); Anion Gap 9.3 mmol/L (4.00-12.00); BUN/Creat Ratio 11.11 Ratio (12.00-20.00); Calcium 9.6 mg/dL (8.7-10.3); Carbon Dioxide 26.7 mmol/L (21.6-31.8); Chol/HDL Ratio 2.79; Globulin 2.1 g/dL (1.6-3.3); LDL Cholesterol,Calculated 91.8 mg/dL (0.0-131.0); Potassium 4.1 mmol/L (3.5-5.5); Total Bilirubin 0.5 mg/dL (0.3-1.2); Total Protein 6.7 g/dL (6.2-8.2); VLDL Calculation 39.2 mg/dL (5.00-40.00)
== END | disposition home or self-care (01) ==
LOC: LABWHC1 09:35
PROVIDERS: ATTEND Family Medicine
DX: Z00.00 Encounter for general adult medical examination without abnormal findings (principal); K76.9 Liver disease, unspecified
CPT/HCPCS: 36415; 80053; 80061; 81003; 82306; 82977; 84443; 85027

== ENCOUNTER → 2019-12-26 | Outpatient (CLI) | payer OTHER ==
[2019-12-26 08:42] LABS: Basophils # (A) 0.1 k/uL (0-0.2); Basophils % (A) 1 %; Eosinophils # (A) 0.1 k/uL (0-0.7); Eosinophils % (A) 3 %; HCT 48.9 % (34.0-46.0); HGB 15.6 gm/dL (11.4-16.0); Lymphocytes # (A) 1.3 k/uL (1.0-4.8); Lymphocytes % (A) 25 %; MCH 31.2 pg (25.0-35.0); MCHC 31.9 g/dL (31.0-37.0); MCV 97.9 fL (80.0-100.0); Mean Platelet Volume 7.5; Monocytes # (A) 0.3 k/uL (0-1.0); Monocytes % (A) 6 %; Neutrophils # (A) 3.2 k/uL (1.3-7.7); Neutrophils % (A) 64 %; Platelet Count 125 k/uL (150-450); RDW 12.4 % (11.5-15.5); WBC 5.1 k/uL (3.8-10.6)
[2019-12-26 17:58] LABS: Ferritin 93.6 ng/mL (10.0-291.0)
[2019-12-26 19:34] LABS: % Iron Saturation 23.62 (12.00-45.00); African American GFR (CKD) 111.5 (60.0-200.0); Albumin 4.5 g/dL (3.80-4.90); Albumin/Globulin Ratio 2.05 (1.60-3.17); Anion Gap 13.3 mmol/L (4.00-12.00); BUN/Creat Ratio 15.71 Ratio (12.00-20.00); Calcium 9.4 mg/dL (8.7-10.3); Carbon Dioxide 22.7 mmol/L (21.6-31.8); Globulin 2.2 g/dL (1.6-3.3); Non-African American GFR(CKD) 96.2 (60.0-200.0); Potassium 4.1 mmol/L (3.5-5.5); Total Bilirubin 0.8 mg/dL (0.2-1.2); Total Protein 6.7 g/dL (6.2-8.2)
[2019-12-26 22:01] LABS: Protein, Total 6.7 g/dL (6.2-8.2)
[2019-12-27 09:31] LABS: Ceruloplasmin 27.7 mg/dL (20.0-60.0)
== END | disposition home or self-care (01) ==
LOC: LABWHC1 07:34
PROVIDERS: ATTEND Internal Medicine Gastroenterology
DX: K76.0 Fatty (change of) liver, not elsewhere classified (principal); R94.5 Abnormal results of liver function studies
CPT/HCPCS: 36415; 80053; 82103; 82390; 82728; 83516; 83540; 83550; 84165; 85025; 86038

== ENCOUNTER → 2020-02-05 | Outpatient (CLI) | payer OTHER ==
--- NOTE | 2020-02-06 09:51 | MM ---
Reason for exam: screening (asymptomatic). Last mammogram was performed 1 year and 7 months ago. History: Patient is postmenopausal. Benign MG stereo VAD BX addl LT of the left breast, April 20, 2015. Benign MG stereo VAD BX LT of the left breast, April 20, 2015. Physical Findings: A clinical breast exam by your physician is recommended on an annual basis and results should be correlated with mammographic findings. MG 3D Screening Mammo W/Cad Bilateral CC and MLO view(s) were taken. Prior study comparison: June 28, 2018, bilateral MG 3d screening mammo w/cad. December 31, 2015, left breast MG diagnostic mammo LT w CAD. The breast tissue is heterogeneously dense. This may lower the sensitivity of mammography. There is no discrete abnormality. No significant changes when compared with prior studies. ASSESSMENT: Negative, BI-RAD 1 RECOMMENDATION: Routine screening mammogram of both breasts in 1 year.
== END | disposition home or self-care (01) ==
LOC: RADMAMWWP 15:07
PROVIDERS: ATTEND Family Medicine
DX: Z12.31 Encounter for screening mammogram for malignant neoplasm of breast (principal)
CPT/HCPCS: 77063; 77067

== ENCOUNTER → 2020-07-20 | Outpatient (CLI) | payer OTHER ==
[2020-07-21 00:01] LABS: Basophils # (A) 0.03 X 10*3/uL (0.00-0.10); Basophils % (A) 0.6 %; Eosinophils # (A) 0.11 X 10*3/uL (0.04-0.35); Eosinophils % (A) 2.2 %; HGB 14.3 g/dL (12.0-15.0); Lymphocytes # (A) 1.93 X 10*3/uL (0.90-5.00); Lymphocytes % (A) 39.2 %; MCH 30.3 pg (27.0-32.0); MCHC 32.5 g/dL (32.0-37.0); MCV 93.2 fL (80.0-97.0); Mean Platelet Volume 10.9 fL (9.5-12.2); Monocytes # (A) 0.52 X 10*3/uL (0.20-1.00); Monocytes % (A) 10.6 %; Neutrophils # (A) 2.32 X 10*3/uL (1.80-7.70); Neutrophils % (A) 47.2 %; Platelet Count 143 X 10*3/uL (140-440); RBC 4.72 X 10*6/uL (4.10-5.20); RDW 12.8 % (11.5-14.5); WBC 4.92 X 10*3/uL (4.50-10.00)
[2020-07-21 16:55] LABS: African American GFR (CKD) 94.2 (60.0-200.0); Albumin 4.6 g/dL (3.80-4.90); Albumin/Globulin Ratio 2.09 (1.60-3.17); Anion Gap 15.4 mmol/L (4.00-12.00); Calcium 9.5 mg/dL (8.7-10.3); Carbon Dioxide 23.6 mmol/L (21.6-31.8); Globulin 2.2 g/dL (1.6-3.3); Non-African American GFR(CKD) 81.3 (60.0-200.0); Potassium 4.3 mmol/L (3.5-5.5); Total Bilirubin 0.7 mg/dL (0.2-1.2); Total Protein 6.8 g/dL (6.2-8.2)
== END | disposition home or self-care (01) ==
LOC: LABWHC1 16:08
PROVIDERS: ATTEND Internal Medicine Gastroenterology
DX: K76.0 Fatty (change of) liver, not elsewhere classified (principal)
CPT/HCPCS: 36415; 80053; 85025

== ENCOUNTER → 2021-03-15 | Outpatient (CLI) | payer OTHER ==
--- NOTE | 2021-03-15 14:23 | MM ---
Reason for exam: screening (asymptomatic). Last mammogram was performed 1 year and 1 month ago. History: Patient is postmenopausal. Benign MG stereo VAD BX addl LT of the left breast, April 20, 2015. Benign MG stereo VAD BX LT of the left breast, April 20, 2015. Physical Findings: A clinical breast exam by your physician is recommended on an annual basis and results should be correlated with mammographic findings. MG 3D Screening Mammo W/Cad Bilateral CC and MLO view(s) were taken. Prior study comparison: February 05, 2020, bilateral MG 3d screening mammo w/cad. June 28, 2018, bilateral MG 3d screening mammo w/cad. The breast tissue is heterogeneously dense. This may lower the sensitivity of mammography. Previous mammotome biopsy in the left breast. Superior left MLO asymmetric density is more defined. ASSESSMENT: Incomplete: need additional imaging evaluation, BI-RAD 0 RECOMMENDATION: Special view mammogram of the left breast. (3D) If lesion persists on supplemental views, image directed ultrasound is recommended. [facility] will attempt to contact patient to return for supplemental views and ultrasound if indicated.
== END | disposition home or self-care (01) ==
LOC: RADMAMWWP 06:55
PROVIDERS: ATTEND Family Medicine
DX: Z12.31 Encounter for screening mammogram for malignant neoplasm of breast (principal)
CPT/HCPCS: 77063; 77067

== ENCOUNTER → 2021-03-22 | Outpatient (CLI) | payer OTHER ==
--- NOTE | 2021-03-22 14:28 | MM ---
Reason for exam: additional evaluation requested from abnormal screening. Last mammogram was performed less than 1 month ago. History: Patient is postmenopausal. Benign MG stereo VAD BX addl LT of the left breast, April 20, 2015. Benign MG stereo VAD BX LT of the left breast, April 20, 2015. Physical Findings: Nurse did not find any significant physical abnormalities on exam. MG 3D Work Up W/Cad LT LM and spot compression MLO view(s) were taken of the left breast. Prior study comparison: March 15, 2021, bilateral MG 3d screening mammo w/cad. February 05, 2020, bilateral MG 3d screening mammo w/cad. The breast tissue is heterogeneously dense. This may lower the sensitivity of mammography. There is no discrete abnormality including area of concern left upper MLO view. These results were verbally communicated with the patient and result sheet given to the patient on 03/22/21. ASSESSMENT: Probably benign, BI-RAD 3 RECOMMENDATION: Follow-up diagnostic mammogram of the left breast in 6 months.
== END | disposition home or self-care (01) ==
LOC: RADMAMWWP 13:27
PROVIDERS: ATTEND Family Medicine
DX: R92.8 Other abnormal and inconclusive findings on diagnostic imaging of breast (principal)
CPT/HCPCS: 77065; G0279; 77061

== ENCOUNTER → 2021-04-11 | Outpatient (CLI) | payer OTHER ==
--- NOTE | 2021-04-11 09:28 | CT ---
EXAMINATION TYPE: CT angio chest DATE OF EXAM: 04/11/2021 COMPARISON: 04/10/2019 HISTORY: 60-year-old female I71.2, follow up known thoracic aortic aneurysm TECHNIQUE: Contiguous axial scanning of the chest performed without and with IV Contrast, patient inj ected with 100 mL of Isovue 370. Coronal/sagittal MIP reconstructions performed. 3-D reconstructions generated on a dedicated independent workstation. CT DLP: 318.7 mGycm Automated exposure control for dose reduction was used. FINDINGS: Heart normal size without pericardial effusion. Borderline ectasia aortic root at 3.5 cm, unchanged. Normal ascending aorta 3.4 cm. Conventional arch vessels branching anatomy. Distal arch measures 2.7 cm, unchanged. Remainder of the descending thoracic aorta is normal caliber. Initial noncontrast images show no evidence for acute intramural hematoma. No evidence for aortic dissection. No thoracic lymphadenopathy by CT size criteria. Prominent dependent atelectasis. Mild peribronchovascular patchy groundglass right upper lobe. No other consolidation or pleural effusion. Minimal underlying emphysematous changes suggested. Tiny hiatal hernia. Generalized colonic diverticulosis. Mildly lobulated cyst segment 3 left liver lobe measuring 2.1 cm. Bones: No osseous destructive process. IMPRESSION: 1. Stable borderline ectasia aortic root at 3.5 cm. 2. Suspect minimal underlying emphysematous change. 3. Mild patchy peribronchovascular groundglass in the right upper and midlung. Correlate for early de veloping versus recent or resolving infiltrates including the possibility of COVID pneumonia. 3. Partially visualized colonic diverticulosis.
== END | disposition home or self-care (01) ==
LOC: RADCTMAIN 07:30
PROVIDERS: ATTEND Surgery
DX: I71.2 Thoracic aortic aneurysm, without rupture (principal); K57.30 Diverticulosis of large intestine without perforation or abscess without bleeding
CPT/HCPCS: 71275; Q9967

== ENCOUNTER → 2021-07-15 | Outpatient (CLI) | payer OTHER ==
[2021-07-15 10:44] LABS: Basophils # (A) 0.04 X 10*3/uL (0.00-0.10); Basophils % (A) 0.9 %; Eosinophils # (A) 0.11 X 10*3/uL (0.04-0.35); Eosinophils % (A) 2.5 %; HCT 46.8 % (37.2-46.3); HGB 14.9 g/dL (12.0-15.0); Immature Grans, Automated 0.2 %; Lymphocytes # (A) 1.51 X 10*3/uL (0.90-5.00); Lymphocytes % (A) 34.6 %; MCH 29.6 pg (27.0-32.0); MCHC 31.8 g/dL (32.0-37.0); Mean Platelet Volume 11.1 fL (9.5-12.2); Monocytes % (A) 11.4 %; NRBC Per 100 WBC 0 /100 WBCS (0.0-0.0); Neutrophils % (A) 50.4 %; Platelet Count 114 X 10*3/uL (140-440); RBC 5.03 X 10*6/uL (4.10-5.20); RDW 12.8 % (11.5-14.5); WBC 4.37 X 10*3/uL (4.50-10.00)
[2021-07-15 10:55] LABS: African American GFR (CKD) 109.9 (60.0-200.0); Albumin 4.7 g/dL (3.8-4.9); Albumin/Globulin Ratio 2.14 (1.60-3.17); Anion Gap 11.8 mmol/L (10.00-18.00); BUN/Creat Ratio 17.57 Ratio (12.00-20.00); Blood Urea Nitrogen 12.3 mg/dL (9.0-27.0); Calcium 9.8 mg/dL (8.7-10.3); Carbon Dioxide 27.2 mmol/L (20.0-27.5); Globulin 2.2 g/dL (1.6-3.3); Non-African American GFR(CKD) 94.8 (60.0-200.0); Potassium 4.7 mmol/L (3.5-5.5); Total Bilirubin 0.8 mg/dL (0.30-1.20); Total Protein 6.9 g/dL (6.2-8.2)
== END | disposition home or self-care (01) ==
LOC: LABWHC1 07:03
PROVIDERS: ATTEND Internal Medicine Gastroenterology
DX: K76.0 Fatty (change of) liver, not elsewhere classified (principal)
CPT/HCPCS: 36415; 80053; 85025

== ENCOUNTER 2021-09-09 06:39 | Day surgery (SDC) | payer OTHER ==
[2021-09-08 13:17] VITALS: BMI 24.0
[~2021-09-09 06:39] MED LIST: LACTATED RINGERS 1,000 ML IV SCH
[2021-09-09 07:15] VITALS: TEMP 96.7
[2021-09-09] MEDS ORDERED: PROPOFOL 10 MG/ML 20 ML VIAL IV ONE (07:56)
--- NOTE | 2021-09-09 08:17 | P.PCN ---
Date of Procedure: 09/09/21 Procedure(s) Performed: BRIEF HISTORY: Patient is a 61-year-old pleasant female scheduled for an elective colonoscopy as a part of evaluation of recurrent sigmoid diverticulitis in the last 6 months duration. Patient has prior history of perforated diverticulum in 2013 for which she underwent segmental sigmoid resection. She is currently doing well. PROCEDURE PERFORMED: Colonoscopy. PREOPERATIVE DIAGNOSIS: Acute recurrent sigmoid diverticulitis. IV sedation per Anesthesia. PROCEDURE: After informed consent was obtained, the patient, was brought into the endoscopy unit. IV sedation was administered by Anesthesia under continuous monitoring. Digital rectal examination was normal. Initially the Olympus CF-160 flexible video colonoscope was then inserted in the rectum, gradually advanced into the cecum without any difficulty. Careful examination was performed as the scope was gradually being withdrawn. Ileocecal valve and the appendiceal orifice were visualized and appeared normal. Prep was excellent. Mucosa of the cecum, ascending colon, transverse colon, descending colon, sigmoid colon, and rectum appeared normal. Scattered left sided diverticulosis. Retroflexion was performed in the rectum and no lesions were seen. The patient tolerated the procedure well. IMPRESSION: Normal-appearing colon from rectum to cecum no evidence of colorectal neoplasia. Scattered left sided diverticulosis. RECOMMENDATIONS: Findings of this examination were discussed with the patient last saw her family. She was advised to be a high-fiber diet and fiber supplements a regular basis. Recommend repeat screening colonoscopy in 10 years.
[2021-09-09 08:37] VITALS: RESP 16
[2021-09-09 08:52] VITALS: BP 124/82; PULSE 65
== END 2021-09-09 09:04 | disposition home or self-care (01) ==
LOC: ORWHC2ENDO 06:39
PROVIDERS: ATTEND Internal Medicine Gastroenterology
DX: K57.30 Diverticulosis of large intestine without perforation or abscess without bleeding (principal); Z88.0 Allergy status to penicillin; Z88.5 Allergy status to narcotic agent; Z79.899 Other long term (current) drug therapy; Z86.73 Personal history of transient ischemic attack (TIA), and cerebral infarction without residual deficits
CPT/HCPCS: 45378; J2704

== ENCOUNTER → 2021-10-05 | Outpatient (CLI) | payer OTHER ==
--- NOTE | 2021-10-05 08:10 | MM ---
Reason for Exam: Follow-up at short interval from prior study. Last screening mammogram was performed 7 month(s) ago. Patient History: Menarche at age 15. First Full-Term at age 23. Postmenopausal. 04/20/2015, Benign Core Biopsy on the left side. 04/20/2015, Benign Core Biopsy on the left side. Risk Values: Farrah 5 year model risk: 1.9%. NCI Lifetime model risk: 10.0%. Prior Study Comparison: 12/31/2015 Left Diagnostic Mammogram, [facility]. 06/28/2018 Bilateral Screening Mammogram, [facility]. 02/05/2020 Bilateral Screening Mammogram, [facility]. 03/15/2021 Bilateral Screening Mammogram, [facility]. 03/22/2021 Left Diagnostic Mammogram, [facility]. Tissue Density: Left: The breast tissue is heterogeneously dense. This may lower the sensitivity of mammography. Findings: Analyzed By CAD. No suspicious calcifications are evident. No evidence for nodular density at this time. Microclip marker left breast. Overall Assessment: Benign, BI-RAD 2 Management: Screening Mammogram of both breasts in 6 months. A clinical breast exam by your physician is recommended on an annual basis and results should be correlated with mammographic findings. This exam should not preclude additional follow-up of suspicious palpable abnormalities. Results were given to the patient verbally at the time of exam. Electronically signed and approved by: Ollie Genao M.D. Radiologis
== END | disposition home or self-care (01) ==
LOC: RADMAMWWP 07:33
PROVIDERS: ATTEND Family Medicine
DX: R92.8 Other abnormal and inconclusive findings on diagnostic imaging of breast (principal)
CPT/HCPCS: 77065; G0279; 77061

== ENCOUNTER → 2022-01-11 | Outpatient (CLI) | payer OTHER ==
[2022-01-11 11:31] LABS: HCT 45.1 % (37.2-46.3); MCH 30.2 pg (27.0-32.0); MCHC 33.3 g/dL (32.0-37.0); MCV 90.9 fL (80.0-97.0); Mean Platelet Volume 10.4 fL (9.5-12.2); NRBC Per 100 WBC 0 /100 WBCS (0.0-0.0); Platelet Count 153 X 10*3/uL (140-440); RBC 4.96 X 10*6/uL (4.10-5.20); WBC 4.26 X 10*3/uL (4.50-10.00)
[2022-01-11 11:55] LABS: Chol/HDL Ratio 3.37 Ratio; LDL Cholesterol,Calculated 113.4 mg/dL (0.0-131.0)
[2022-01-11 12:33] LABS: ALT 21 U/L (8-44); AST 21 U/L (13-35); African American GFR (CKD) 109.9 (60.0-200.0); BUN/Creat Ratio 16.14 Ratio (12.00-20.00); Blood Urea Nitrogen 11.3 mg/dL (9.0-27.0); Calcium 9.8 mg/dL (8.7-10.3); Carbon Dioxide 27.1 mmol/L (20.0-27.5); Chloride 107 mmol/L (96-109); Glucose 98 mg/dL (70-110); Non-African American GFR(CKD) 94.8 (60.0-200.0); Potassium 6.1 mmol/L (3.5-5.5); Sodium 145 mmol/L (135-145)
[2022-01-11 13:21] LABS: Appearance,Urine Clear (Clear); Bilirubin,Urine Negative (Negative); Blood,Urine Negative (Negative); Color,Urine Yellow (Yellow); Ketones,Urine Negative (Negative); Nitrite,Urine Negative (Negative); Specific Gravity,Urine 1.017 (1.001-1.030); Urobilinogen,Urine 0.2 (0.2,1.0)
[2022-01-11 13:26] LABS: Bacteria,Urine None Seen /HPF (None Seen)
== END | disposition home or self-care (01) ==
LOC: LABWHC1 07:03
PROVIDERS: ATTEND Family Medicine
DX: Z00.00 Encounter for general adult medical examination without abnormal findings (principal); E78.00 Pure hypercholesterolemia, unspecified
CPT/HCPCS: 36415; 80048; 80061; 81001; 82306; 82607; 84450; 84460; 85027

== ENCOUNTER → 2022-01-12 | Outpatient (CLI) | payer OTHER | END | disposition home or self-care (01) | LOC: LABWHC1 07:05 | PROVIDERS: ATTEND Family Medicine | DX: E87.5 Hyperkalemia (principal) | CPT/HCPCS: 36415; 84132 ==

== ENCOUNTER 2022-03-14 10:02 | Emergency (ER) | payer OTHER ==
[2022-03-14 10:41] VITALS: RESP 18; TEMP 98.2
[2022-03-14] MEDS ORDERED: SODIUM CHLORIDE 0.9% 1,000 ML IV STA (11:01)
[2022-03-14 11:38] LABS: Basophils # (A) 0.1 k/uL (0-0.2); Basophils % (A) 1 %; Eosinophils % (A) 1 %; HCT 48.9 % (34.0-46.0); HGB 16.7 gm/dL (11.4-16.0); Lymphocytes # (A) 1.3 k/uL (1.0-4.8); Lymphocytes % (A) 18 %; MCH 30.7 pg (25.0-35.0); MCHC 34.2 g/dL (31.0-37.0); MCV 89.6 fL (80.0-100.0); Mean Platelet Volume 8.4; Monocytes # (A) 0.4 k/uL (0-1.0); Monocytes % (A) 6 %; Neutrophils # (A) 5.1 k/uL (1.3-7.7); Neutrophils % (A) 73 %; Platelet Count 119 k/uL (150-450); RBC 5.45 m/uL (3.80-5.40); RDW 12.3 % (11.5-15.5)
[2022-03-14 11:39] LABS: Appearance,Urine Clear (Clear); Bilirubin,Urine Negative (Negative); Blood,Urine Small (Negative); Color,Urine Light Yellow; Glucose,Urine (UA) Negative (Negative); Ketones,Urine 2+ (Negative); Leukocyte Esterase,Urine Negative (Negative); Mucus,Urine Occasional /hpf; Nitrite,Urine Negative (Negative); Protein,Urine Negative (Negative); RBC,Urine 2 /hpf (0-5); Specific Gravity,Urine 1.013 (1.001-1.035); Squamous Epithelial Cell,Urine <1 /hpf (0-4); Urobilinogen,Urine <2.0 mg/dL (<2.0); WBC,Urine 1 /hpf (0-5)
[2022-03-14 11:45] LABS: ALT 20 U/L (4-34); AST 29 U/L (14-36); African American GFR (CKD) >90 (>60 ml/min/1.73 sqM); Albumin 4.9 g/dL (3.5-5.0); Alkaline Phosphatase 69 U/L (38-126); Anion Gap 12 mmol/L; Blood Urea Nitrogen 14 mg/dL (7-17); Calcium 8.8 mg/dL (8.4-10.2); Carbon Dioxide 23 mmol/L (22-30); Chloride 105 mmol/L (98-107); Glucose 86 mg/dL (74-99); Lipase 108 U/L (23-300); Non-African American GFR(CKD) >90 (>60 ml/min/1.73 sqM); Sodium 140 mmol/L (137-145); Total Bilirubin 1.4 mg/dL (0.2-1.3); Total Protein 7.7 g/dL (6.3-8.2)
[2022-03-14 11:48] LABS: Potassium 4.1 mmol/L (3.5-5.1)
--- NOTE | 2022-03-14 12:42 | US ---
EXAMINATION TYPE: US abdomen limited DATE OF EXAM: 03/14/2022 COMPARISON: NONE CLINICAL HISTORY: 61-year-old female RUQ pain. TECHNIQUE: Multiple sonographic images of the right upper quadrant are obtained. FINDINGS: EXAM MEASUREMENTS: Liver Length: 13.7 cm Gallbladder Wall: 0.2 cm CBD: 0.3 cm Right Kidney: 9.8 x 4.9 x 5.4 cm FORENSIC IDENTIFICATION SPECIALIST NOTES: Extensive overlying bowel gas, technically difficult somewhat limited study. Pancreas: . The pancreas is visualized and shows no gross abnormality. Liver: Minimally septated cyst left lobe measuring 2.2 x 1.2 x 1.7cm. 2.5 cm back to 12/10/2019. No ot her focal lesion seen. Gallbladder: wnl Evidence for sonographic Perez's sign: No CBD: wnl Right Kidney: Inferior pole obscured by overlying bowel gas . No hydronephrosis. IMPRESSION: No gallstones or biliary ductal dilatation. Benign 2.2 cm cyst left hepatic lobe.
--- NOTE | 2022-03-14 12:46 | ED ---
Abdominal Pain HPI - General Chief Complaint: Abdominal Pain Stated Complaint: gallbladder problems Time Seen by Provider: 03/14/22 11:00 Source: patient Mode of arrival: ambulatory Limitations: no limitations - History of Present Illness Initial Comments: Patient is a 61-year-old female who presents to the emergency department with a chief complaint of abdominal pain. Patient was seen in her upper right abdomen since Sunday. Describes it as an aching with radiation to the back. Pain mostly related to food intake. No pain currently. She denies fever, chills, nausea, vomiting, diarrhea. Denies alcohol use. Denies history of gallbladder disease. Denies history of abdominal surgery. Patient was sent by her PCP today. - Related Data Home Medications Medication Instructions Recorded Confirmed Omeprazole Magnesium [PriLOSEC OTC] 20 mg PO DAILY 03/14/22 03/14/22 Previous Rx's Medication Instructions Recorded Ibuprofen [Motrin] 800 mg PO Q8H PRN #30 tab 03/14/22 Allergies Allergy/AdvReac Type Severity Reaction Status Date / Time codeine Allergy Unknown Verified 03/14/22 12:22 Childhood Penicillins Allergy Childhood-severe Verified 03/14/22 12:22 rash, swollen throat. Review of Systems ROS Statement: Those systems with pertinent positive or pertinent negative responses have been documented in the HPI. ROS Other: All systems not noted in ROS Statement are negative. Past Medical History Past Medical History: CVA/TIA, GERD/Reflux Additional Past Medical History / Comment(s): hx tia (10 yrs ago), diverticulitis x2 History of Any Multi-Drug Resistant Organisms: None Reported Past Surgical History: Appendectomy Additional Past Surgical History / Comment(s): VEIN STRIPPING surgery, COLONO SCOPY Past Anesthesia/Blood Transfusion Reactions: No Reported Reaction Additional Past Anesthesia/Blood Transfusion Reaction / Comment(s): . Past Psychological History: No Psychological Hx Reported Smoking Status: Never smoker Past Alcohol Use History: None Reported Past Drug Use History: None Reported - Past Family History Father Family Medical History: Cancer Additional Family Medical History / Comment(s): HODGKINS LYMPHOMA Mother Family Medical History: No Reported History General Exam Limitations: no limitations General appearance: alert, in no apparent distress Head exam: Present: atraumatic, normocephalic, normal inspection Eye exam: Present: normal appearance, PERRL, EOMI. Absent: scleral icterus, conjunctival injection, periorbital swelling Respiratory exam: Present: normal lung sounds bilaterally. Absent: respiratory distress, wheezes, rales, rhonchi, stridor Cardiovascular Exam: Present: regular rate, normal rhythm, normal heart sounds. Absent: systolic murmur, diastolic murmur, rubs, gallop, clicks GI/Abdominal exam: Present: soft, tenderness (RUQ. Positive montilla), normal bowel sounds. Absent: distended, guarding, rebound, rigid Neurological exam: Present: alert, oriented X3, CN II-XII intact Psychiatric exam: Present: normal affect, normal mood Skin exam: Present: warm, dry, intact, normal color. Absent: rash Course Vital Signs 03/14/22 03/14/22 10:37 12:41 Temperature 98.2 F Pulse Rate 82 80 Respiratory 18 18 Rate Blood Pressure 142/86 140/76 O2 Sat by Pulse 96 98 Oximetry Medical Decision Making - Medical Decision Making Was pt. sent in by a medical professional or institution? @ -Yes, primary care provider Did you speak to anyone other than the patient for history? @ -No Did you review nursing and triage notes? @ -Yes, I agree with the triage notes Were old charts reviewed? @ -Yes, previous liver ultrasound reviewed which showed fatty liver Differential Diagnosis? @ -Differential Abdominal Pain Men: cholecystitis, cholelithiasis, pancreatitis, hepatitis, peptic ulcer disease EKG interpreted by me (3pts min.)? @ -Not applicable X-rays interpreted by me (1pt min.)? @ -Not applicable CT interpreted by me (1pt min.)? @ -Not applicable U/S interpreted by me (1pt. min.)? @ -No, radiology report was negative for gallstones, ductal dilation, and other acute process. What testing was considered but not performed? (CT, X-rays, U/S, labs)? Why? @-None What meds were considered but not given? Why? @ -Consider getting pain meds however patient was not pain Did you discuss the management of the patient with other professionals? @-No Did you reconcile home meds? @ -Not applicable Was smoking cessation discussed for >3mins.? @ -No Was critical care preformed (if so, how long)? @ -No Were there social determinants of health that impacted care today? How? (Homelessness, low income, unemployed, alcoholism, drug addiction, transportation, low edu. Level, literacy, decrease access to med. care, shelter, rehab)? @ -No Was there de-escalation of care discussed even if they declined? (Discuss DNR or withdrawal of care, Hospice)? @ -No What co-morbidities impacted this encounter? (DM, HTN, Smoking, COPD, CAD, Cancer, CVA, Hep., AIDS, mental health diagnosis, sleep apnea, morbid obesity)? @ -GERD Was patient admitted / discharged? @ -Patient is afebrile, no leukocytosis. No acute process on ultrasound. Controlled pain. She'll be discharged with referral to Dr. Perez for HIDA scan Undiagnosed new problem with uncertain prognosis? @ -Yes, right upper quadrant pain Drug Therapy requiring intensive monitoring for toxicity (Heparin, Nitro, Insulin, Cardizem)? @ -No Were any procedures done? @ -No Diagnosis/symptom? @ -Right upper quadrant pain Acute, or Chronic, or Acute on Chronic? @ -Acute Uncomplicated (without systemic symptoms) or Complicated (systemic symptoms)? @ -Uncomplicated Side effects of treatment? @ -Not applicable Exacerbation, Progression, or Severe Exacerbation] @ -Not applicable Poses a threat to life or bodily function? @ -No Dr. Del Valle is my attending. - Lab Data Result diagrams: 03/14/22 11:21 03/14/22 11:21 Lab Results 03/14/22 03/14/22 03/14/22 Range/Units 11:21 11:21 11:21 WBC 7.0 (3.8-10.6) k/uL RBC 5.45 H (3.80-5.40) m/uL Hgb 16.7 H (11.4-16.0) gm/dL Hct 48.9 H (34.0-46.0) % MCV 89.6 (80.0-100.0) fL MCH 30.7 (25.0-35.0) pg MCHC 34.2 (31.0-37.0) g/dL RDW 12.3 (11.5-15.5) % Plt Count 119 L (150-450) k/uL MPV 8.4 Neutrophils % 73 % Lymphocytes % 18 % Monocytes % 6 % Eosinophils % 1 % Basophils % 1 % Neutrophils # 5.1 (1.3-7.7) k/uL Lymphocytes # 1.3 (1.0-4.8) k/uL Monocytes # 0.4 (0-1.0) k/uL Eosinophils # 0.0 (0-0.7) k/uL Basophils # 0.1 (0-0.2) k/uL Sodium 140 (137-145) mmol/L Potassium 4.1 (3.5-5.1) mmol/L Chloride 105 (98-107) mmol/L Carbon Dioxide 23 (22-30) mmol/L Anion Gap 12 mmol/L BUN 14 (7-17) mg/dL Creatinine 0.56 (0.52-1.04) mg/dL Est GFR (CKD-EPI)AfAm >90 (>60 ml/min/1.73 sqM) Est GFR (CKD-EPI)NonAf >90 (>60 ml/min/1.73 sqM) Glucose 86 (74-99) mg/dL Calcium 8.8 (8.4-10.2) mg/dL Total Bilirubin 1.4 H (0.2-1.3) mg/dL AST 29 (14-36) U/L ALT 20 (4-34) U/L Alkaline Phosphatase 69 (38-126) U/L Total Protein 7.7 (6.3-8.2) g/dL Albumin 4.9 (3.5-5.0) g/dL Lipase 108 (23-300) U/L Urine Color Light Yellow Urine Appearance Clear (Clear) Urine pH 5.0 (5.0-8.0) Ur Specific Bard 1.013 (1.001-1.035) Urine Protein Negative (Negative) Urine Glucose (UA) Negative (Negative) Urine Ketones 2+ H (Negative) Urine Blood Small H (Negative) Urine Nitrite Negative (Negative) Urine Bilirubin Negative (Negative) Urine Urobilinogen <2.0 (<2.0) mg/dL Ur Leukocyte Esterase Negative (Negative) Urine RBC 2 (0-5) /hpf Urine WBC 1 (0-5) /hpf Ur Squamous Epith Cells <1 (0-4) /hpf Urine Mucus Occasional H (None) /hpf Disposition Clinical Impression: RUQ pain Disposition: HOME SELF-CARE Condition: Good Instructions (If sedation given, give patient instructions): Biliary Colic (ED), Low Fat Diet (ED) Additional Instructions: Take medication as directed. Follow-up with GI specialist in 1-2 days. Return to the emergency department experience new, concerning, or worsening symptoms. Prescriptions: Ibuprofen [Motrin] 800 mg PO Q8H PRN #30 tab PRN Reason: Pain Is patient prescribed a controlled substance at d/c from ED?: No Referrals: Abdias Vicente DO [Primary Care Provider] - 1-2 days Arti Perez MD [STAFF PHYSICIAN] - 1-2 days
[2022-03-14 13:25] VITALS: BP 140/76; PULSE 80
== END 2022-03-14 13:25 | disposition home or self-care (01) ==
LOC: EC 10:02
DX: R10.11 Right upper quadrant pain (principal); K21.9 Gastro-esophageal reflux disease without esophagitis; Z88.0 Allergy status to penicillin; Z88.5 Allergy status to narcotic agent; Z79.899 Other long term (current) drug therapy
CPT/HCPCS: 36415; 76705; 80053; 81001; 83690; 85025; 96360; 99284

== ENCOUNTER → 2022-03-23 | Outpatient (CLI) | payer OTHER ==
--- NOTE | 2022-03-23 09:43 | NM ---
EXAMINATION TYPE: NM hepatobiliary w CCK DATE OF EXAM: 03/23/2022 COMPARISON: Abdominal ultrasound 03/14/2022. HISTORY: R10.11 RUQ pain TECHNIQUE: After the intravenous administration of 4.4 mCi Tc 99m Mebrofenin hepatobiliary scintigrap hy is performed. Immediate images post injection. FINDINGS: There is satisfactory initial accumulation of tracer by the liver. The gallbladder is visualized wit hin 10 minutes. The small bowel activity is noted within the extreme minutes. At one hour CCK was a dministered, patient was injected with 1.3 mcg of Kinevac, and gallbladder ejection fraction is calcu lated at 22 %. IMPRESSION: 1. No evidence for cystic or common bile duct obstruction. 2. Gallbladder dyskinesia with ejection fraction of 22%.
--- NOTE | 2022-03-23 10:48 | CT ---
EXAMINATION TYPE: CT abdomen pelvis w con DATE OF EXAM: 03/23/2022 COMPARISON: Hepatobiliary 03/23/2022, CT scan 04/17/2016 HISTORY: RUQ pain CT DLP: 705 mGycm Automated exposure control for dose reduction was used. CONTRAST: CT scan of the abdomen pelvis is performed with IV Contrast, patient injected with 70 mL of Isovue 30 0. FINDINGS- LUNG BASES- No significant abnormality is appreciated. LIVER/GB- there is a 1.8 cm hypodense lesion left lobe of the liver measuring 11 Hounsfield units c ompatible with simple cyst. No gallstones mild prominence of the gallbladder. PANCREAS- No gross abnormality is seen. SPLEEN- No gross abnormality is seen. ADRENALS- No gross abnormality is seen. KIDNEYS/BLADDER-no hydronephrosis or nephrolithiasis. Small parapelvic renal cysts. BOWEL- bowel gas pattern nonspecific with no obstruction. Findings compatible with diverticulosis of the colon. LYMPH NODES- No greater than 1cm abdominal or pelvic lymph nodes are appreciated. OSSEOUS STRUCTURES- hypertrophic and degenerative changes of the vertebral column. OTHER- aorta of normal caliber. No free fluid. There is a small amount of air within the bladder. IMPRESSION- 1. There is a small amount of air within the bladder correlate for previous Keenan catheter insertion otherwise correlate with urinalysis for infectious etiology. 2. Diverticulosis with no CT evidence of diverticulitis. 3. Simple hepatic cyst. 4. Mild prominence of the gallbladder without evidence of biliary obstruction or gallstones.
== END | disposition home or self-care (01) ==
LOC: RADNMMAIN 06:46
PROVIDERS: ATTEND Internal Medicine Gastroenterology
DX: K76.89 Other specified diseases of liver (principal); K57.30 Diverticulosis of large intestine without perforation or abscess without bleeding; K82.8 Other specified diseases of gallbladder
CPT/HCPCS: 74177; 78227; A9537; J2805; Q9967

== ENCOUNTER 2022-03-31 11:35 | Day surgery (SDC) | payer OTHER ==
[2022-03-31 13:22] VITALS: TEMP 97
[2022-03-31] MEDS ORDERED: PROPOFOL 10 MG/ML 20 ML VIAL IV ONE (14:18)
[2022-03-31] MEDS ORDERED: LIDOCAINE 2% INJ 20 MG/ML (2 ML VIAL) ONE (14:18)
--- NOTE | 2022-03-31 14:32 | P.PCN ---
Date of Procedure: 03/31/22 Procedure(s) Performed: BRIEF HISTORY: Patient is a 61-year-old, pleasant, white female scheduled for an upper endoscopy as a part of evaluation of severe right upper quadrant abdominal pain for the last 6 months duration. For the last 3 weeks symptoms have been progressively getting worse. She will emergency room and had a CT of the abdomen and pelvis that was unremarkable. She did have a HIDA scan that showed slightly decreased ejection fraction of the gallbladder. She was tried with PPIs with no help. She is hence scheduled for an upper endoscopy to evaluate further. PROCEDURE PERFORMED: Esophagogastroduodenoscopy with biopsy. PREOPERATIVE DIAGNOSIS: Severe right upper quadrant abdominal pain of 6 months duration. IV sedation per anesthesia. PROCEDURE: After informed consent was obtained, the patient was brought into the endoscopy unit. IV sedation was administered by Anesthesia under continuous monitoring. Initially the Olympus GIF-140 video endoscope was inserted into the mouth. Esophagus intubated without any difficulty. It was gradually advanced into the stomach and duodenum and carefully examined. The bulb and the second part of the duodenum appeared normal. The scope at this time was withdrawn to the stomach, adequately insufflated with air, and upon careful examination, mucosa of the antrum, had mild patchy areas of erythema consistent with gastritis and biopsies were done from this area. Mucosa of the small hiatal hernia noted. There was a distal esophageal whitish patent Schatzki's ring identified. body, cardia and the fundus appeared normal. The scope was then withdrawn into the esophagus. The GE junction was located at 39 cm from the incisors. The esophagus appeared normal. There were no erosions or ulcerations seen and the patient tolerated the procedure well. IMPRESSION: 1. Mild antral gastritis. 2. Small hiatal hernia. 3. Widely patent distal esophageal Schatzki's ring RECOMMENDATIONS: The findings of this examination were discussed with the patient as well as a family. She was advised to continue with her current medications and follow antireflux measures. She'll follow with surgery for evaluation of right upper quadrant abdominal pain and possible gallbladder dyskinesia.
[2022-03-31 14:55] VITALS: BP 122/86; PULSE 80; RESP 16
== END 2022-03-31 15:09 | disposition home or self-care (01) ==
LOC: ORWHC2ENDO 11:35
PROVIDERS: ATTEND Internal Medicine Gastroenterology
DX: K29.50 Unspecified chronic gastritis without bleeding (principal); K44.9 Diaphragmatic hernia without obstruction or gangrene; K22.2 Esophageal obstruction; K21.9 Gastro-esophageal reflux disease without esophagitis; Z88.0 Allergy status to penicillin; Z88.5 Allergy status to narcotic agent; Z79.899 Other long term (current) drug therapy
CPT/HCPCS: 43239; 88305; J2704; J2001

== ENCOUNTER → 2022-11-16 | Outpatient (CLI) | payer OTHER ==
[2022-11-16 08:18] LABS: Appearance,Urine Cloudy (Clear); Bacteria,Urine Rare /hpf; Bilirubin,Urine Negative (Negative); Blood,Urine Negative (Negative); Color,Urine Light Yellow; Glucose,Urine (UA) Negative (Negative); Ketones,Urine Negative (Negative); Leukocyte Esterase,Urine Moderate (Negative); Mucus,Urine Occasional /hpf; Nitrite,Urine Negative (Negative); PH, Urine 6.5 (5.0-8.0); Protein,Urine Negative (Negative); RBC,Urine 2 /hpf (0-5); Specific Gravity,Urine 1.021 (1.001-1.035); Squamous Epithelial Cell,Urine 3 /hpf (0-4); Urobilinogen,Urine <2.0 mg/dL (<2.0); WBC,Urine 2 /hpf (0-5)
[2022-11-16 13:21] LABS: Basophils # (A) 0.04 X 10*3/uL (0.00-0.10); Basophils % (A) 0.8 %; HCT 46.1 % (37.2-46.3); HGB 15.1 d/dL (12.0-15.0); Lymphocytes # (A) 1.51 X 10*3/uL (0.90-5.00); Lymphocytes % (A) 30.3 %; MCH 29.8 pg (27.0-32.0); MCHC 32.8 d/dL (32.0-37.0); MCV 91.1 FL (80.0-97.0); Mean Platelet Volume 10.5 FL (9.5-12.2); Monocytes # (A) 0.43 X 10*3/uL (0.20-1.00); Monocytes % (A) 8.6 %; NRBC Per 100 WBC 0 X 10*3/uL (0.00-0.01); Neutrophils % (A) 58.1 %; Platelet Count 125 X 10*3/uL (140-440); RBC 5.06 X 10*6/uL (4.10-5.20); RDW 13.1 % (11.5-14.5); WBC 4.99 X 10*3/uL (4.50-10.00)
[2022-11-16 13:59] LABS: Chol/HDL Ratio 3.66 Ratio; LDL Cholesterol,Calculated 145.6 mg/dL (0.0-131.0)
== END | disposition home or self-care (01) ==
LOC: LABWHC1 06:46
PROVIDERS: ATTEND Family Medicine
DX: Z00.00 Encounter for general adult medical examination without abnormal findings (principal); D69.6 Thrombocytopenia, unspecified
CPT/HCPCS: 36415; 80061; 81001; 82306; 85025

== ENCOUNTER → 2023-01-10 | Outpatient (CLI) | payer OTHER ==
--- NOTE | 2023-01-10 17:45 | US ---
EXAMINATION TYPE: US venous doppler duplex LE DATE OF EXAM: 01/10/2023 3:48 PM COMPARISON: LOWER EXTREMITY VENOUS INSUFFICIENCY CLINICAL INDICATION: Female, 62 years old with history of I87.2 VENOUS INSUFFICIENCY (CHRONIC) (PERIP HERAL); venous insufficiency SIDE PERFORMED: Bilateral 1) Color flow is present and patency is documented in the following vessels. No DVT or SVT is noted . Common Femoral Vein Deep Femoral Vein Femoral Vein Popliteal Vein Proximal Calf Veins Greater Saph Vein Upper Small Saph Vein 2) There is venous reflux noted at the following venous levels: RT Greater Saph Vein 3) Incompetent perforators are noted at these levels: RT Greater Saph Vein IMPRESSION: Venous insufficiency is identified within the right greater saphenous vein. No deep venou s thrombosis identified.
== END | disposition home or self-care (01) ==
LOC: RADUSWWP 14:58
PROVIDERS: ATTEND Family Medicine
DX: I87.2 Venous insufficiency (chronic) (peripheral) (principal)
CPT/HCPCS: 93970

== ENCOUNTER → 2023-01-10 | Outpatient (CLI) | payer OTHER ==
--- NOTE | 2023-01-10 22:19 | CT ---
EXAMINATION TYPE: CT chest w con DATE OF EXAM: 01/10/2023 COMPARISON: 04/11/2021 HISTORY: Right upper abdominal pain, right lower rib pain x 1.[address] DLP: 211.1 mGycm, Automated exposure control for dose reduction was used. CONTRAST: Performed injected with 100 cc mL of Isovue 300. TECHNIQUE: Axial images were obtained at 5 mm thick sections. Reconstructed images are reviewed on [employer] computer in the coronal plane. FINDINGS: Portion of the thyroid visualized is normal. No suspicious lung nodules or focal infiltrates are present. No enlarged mediastinal or hilar adenopathy is evident. The ascending aorta diameter at the level o f the main pulmonary artery is 3.4 cm. The main pulmonary artery diameter at the bifurcation is 2.[address] sections are obtained through the upper abdomen. Abdomen is essentially unremarkable. IMPRESSION: 1. No acute pulmonary process.
== END | disposition home or self-care (01) ==
LOC: RADCTMAIN 14:20
PROVIDERS: ATTEND Internal Medicine Hematology & Oncology
DX: D69.6 Thrombocytopenia, unspecified (principal); R07.81 Pleurodynia; R10.11 Right upper quadrant pain
CPT/HCPCS: 71260; Q9967

== ENCOUNTER → 2023-04-09 | Outpatient (CLI) | payer OTHER ==
--- NOTE | 2023-04-09 09:57 | CT ---
CT CHEST FOR PULMONARY EMBOLISM. EXAMINATION TYPE: CT angio chest DATE OF EXAM: 04/09/2023 INDICATION: thoracic aortic aneurysm w/o rupture CT DLP: 331.40 mGycm, Automated exposure control for dose reduction was used. CONTRAST: Patient injected with 100 mL of Isovue 370. COMPARISON: 01/10/2023 TECHNIQUE: CT of the chest is performed on a spiral scan at 2 mm thick sections. Study is performed with intravenous contrast timed for evaluation for pulmonary embolism. This will limit additional po rtions of the evaluation. 3-D MIP images reconstructed by the technologist are reviewed on the compu ter in the coronal and sagittal planes. FINDINGS: No persistent filling defects are evident to suggest an acute pulmonary embolism. No mediastinal or hilar adenopathy enlarged by CT criteria is evident. The ascending aorta diameter at the level of the main pulmonary artery is 3.4 cm. The main pulmonary artery diameter at the bifur cation is 2.6 cm. No aneurysmal dilatation or dissection of the aorta is evident. Lung windows are clear. Limited CT section through the upper abdomen are unremarkable. IMPRESSION: 1. No aneurysmal dilatation of the ascending or descending thoracic aorta.
== END | disposition home or self-care (01) ==
LOC: RADCTMAIN 09:06
PROVIDERS: ATTEND Surgery
DX: I71.20 Thoracic aortic aneurysm, without rupture, unspecified (principal)
CPT/HCPCS: 71275; Q9967

== ENCOUNTER → 2023-06-05 | Outpatient (CLI) | payer OTHER ==
--- NOTE | 2023-06-06 09:44 | MM ---
Reason for Exam: Screening (asymptomatic). Last mammogram was performed 1 year(s) and 1 month(s) ago. Patient History: Menarche at age 15. First Full-Term at age 23. Postmenopausal. 04/20/2015, Benign Core Biopsy on the left side. 04/20/2015, Benign Core Biopsy on the left side. Risk Values: Farrah 5 year model risk: 2.0%. NCI Lifetime model risk: 9.5%. Prior Study Comparison: 06/28/2018 Bilateral Screening Mammogram, [facility]. 02/05/2020 Bilateral Screening Mammogram, [facility]. 03/15/2021 Bilateral Screening Mammogram, [facility]. 03/22/2021 Left Diagnostic Mammogram, [facility]. 10/05/2021 Left MG 3D diag mammo w/cad LT, [facility]. 05/16/2022 Bilateral MG 3D screening mammo w/cad, [facility]. Tissue Density: The breasts are heterogeneously dense, which may obscure small masses. Findings: Analyzed By CAD. There is no suspicious group of microcalcifications or new suspicious mass in either breast. Surgical clip is noted in the left breast. Benign calcifications. Overall Assessment: Benign, BI-RAD 2 Management: Screening Mammogram of both breasts in 1 year. . Patient should continue monthly self-breast exams. A clinical breast exam by your physician is recommended on an annual basis. This exam should not preclude additional follow-up of suspicious palpable abnormalities. Note on Farrah scores and lifetime risk: 1. A Farrah score greater than 3% is considered moderate risk. If this is the case, consider specialist referral to assess eligibility for a risk reducing agent. 2. If overall lifetime risk for the development of breast cancer is 20% or higher, the patient may qualify for future screening with alternating mammogram and breast MRI. Electronically signed and approved by: Oleg Cerna M.D. Radiologis
== END | disposition home or self-care (01) ==
LOC: RADMAMWWP 07:00
PROVIDERS: ATTEND Family Medicine
DX: Z12.31 Encounter for screening mammogram for malignant neoplasm of breast (principal); Z78.0 Asymptomatic menopausal state
CPT/HCPCS: 77063; 77067

== ENCOUNTER → 2023-11-22 | Outpatient (CLI) | payer OTHER ==
[2023-11-22 11:09] LABS: Chol/HDL Ratio 3.24 Ratio; LDL Cholesterol,Calculated 137.7 mg/dL (0.0-131.0); VLDL Calculation 15.06 mg/dL (5.00-40.00)
[2023-11-22 11:10] LABS: ALT 21 U/L (8-44); AST 20 U/L (13-35); Albumin 4.6 g/dL (3.8-4.9); Albumin/Globulin Ratio 2.42 Ratio (1.60-3.17); Alkaline Phosphatase 55 U/L (41-126); BUN/Creat Ratio 15.57 Ratio (12.00-20.00); Blood Urea Nitrogen 10.9 mg/dL (9.0-27.0); Calcium 9.3 mg/dL (8.7-10.3); Carbon Dioxide 26.9 mmol/L (21.6-31.8); Chloride 103 mmol/L (96-109); Globulin 1.9 g/dL (1.6-3.3); Glucose 98 mg/dL (70-110); Potassium 4.2 mmol/L (3.5-5.5); Sodium 139 mmol/L (135-145); Total Bilirubin 0.8 mg/dL (0.3-1.2); Total Protein 6.5 g/dL (6.2-8.2)
[2023-11-22 15:29] LABS: Appearance,Urine Clear (Clear); Bilirubin,Urine Negative (Negative); Blood,Urine Negative (Negative); Color,Urine Yellow (Yellow); Ketones,Urine Negative (Negative); Nitrite,Urine Negative (Negative); PH, Urine 6.5; Specific Gravity,Urine 1.008 (1.001-1.030); Urobilinogen,Urine 0.2 E.U./DL
[2023-11-22 15:44] LABS: Bacteria,Urine None Seen (None Seen)
== END | disposition home or self-care (01) ==
LOC: LABWHC1 07:14
PROVIDERS: ATTEND Family Medicine
DX: Z00.00 Encounter for general adult medical examination without abnormal findings
CPT/HCPCS: 36415; 80053; 80061; 81001; 82306; 83036; 84443

== ENCOUNTER → 2024-01-24 | Outpatient (CLI) | payer OTHER ==
--- NOTE | 2024-01-26 18:04 | BD ---
EXAMINATION TYPE: Axial Bone Density DATE OF EXAM: 01/24/2024 CLINICAL HISTORY: 63 years old Female. ICD-10 CODE: Z13.280 SCR OSTEO , Additional History: Height: 65.5 Weight: 136.9 FRAX RISK QUESTIONS: Alcohol (3 or more units per day): no Family History (Parent hip fracture): no Glucocorticoids (More than 3mos): no (Ex: prednisone, prednisolone, methylprednisolone, dexamethasone, and hydrocortisone). History of Fracture in Adulthood: no Secondary Osteoporosis: 1. Type 1 Diabetes: no 2. Hyperthyroidism: no 3. Menopause before 45: no 4. Malnutrition: no 5. Chronic liver disease: no Rheumatoid Arthritis: no Current Tobacco Use: no RISK FACTORS HISTORY OF: Hip Fracture (Right/Left): no Spine Fracture: no History of Wrist Fracture: no Surgery to Spine/Hip(right/left)/Wrist (right/left): no MEDICATIONS: Thyroid Medications: no Osteoporosis Medications: no EXAM MEASUREMENTS: Bone mineral densitometry was performed using the [facility]. Bone mineral density as measured about the Lumbar spine is: ----- L1-L4(G/cm2): 1.168 T Score Values are as follows: ----- L1: -0.8 ----- L2: -0.5 ----- L3: 0.3 ----- L4: 0.4 ----- L1-L4: -0.1 Z Score Values are as follows: ----- L1: 0.6 ----- L2: 1.0 ----- L3: 1.7 ----- L4: 1.8 ----- L1-L4: 1.3 Bone mineral density has: decreased -5.4 % since study of: 06/28/2018 Bone mineral density about the R hip (g/cm2): 0.936 Bone mineral density about the L hip (g/cm2): 0.899 T Score values are as follows: -----R Neck: -0.8 -----L Neck: -0.9 -----R Total: -0.6 -----L Total: -0.9 Z Score values are as follows: -----R Neck: 0.6 -----L Neck: 0.5 -----R Total: 0.5 -----L Total: 0.2 Bone mineral density has: DECREASED -3.9 % since study of: 06/28/2018 FRAX%s: The graph provided illustrates a 6.8% chance for a major osteoporotic fx and a 0.4% chance fo r the hips probability for fx in 10 years time. IMPRESSION: Normal (Values between +1 and -1 indicate normal bone mass). Consider repeating this study in 5 year s or sooner if there is some new clinical indication. NOTE: T-SCORE=SD OF THE YOUNG ADULT MEAN. [facility], , 01/26/2024 6:02 PM
== END | disposition home or self-care (01) ==
LOC: RADBDWWP 16:16
PROVIDERS: ATTEND Family Medicine
DX: Z13.820 Encounter for screening for osteoporosis (principal)
CPT/HCPCS: 77080

== ENCOUNTER → 2024-06-20 | Outpatient (CLI) | payer OTHER ==
--- NOTE | 2024-06-20 07:49 | MM ---
Reason for Exam: Screening (asymptomatic). Last mammogram was performed 1 year(s) and 1 month(s) ago. Patient History: Menarche at age 15. First Full-Term at age 23. Postmenopausal. 04/20/2015, Benign Core Biopsy on the left side. 04/20/2015, Benign Core Biopsy on the left side. Risk Values: Farrah 5 year model risk: 2.1%. NCI Lifetime model risk: 9.2%. Prior Study Comparison: 10/05/2021 Left MG 3D diag mammo w/cad , [facility]. 05/16/2022 Bilateral MG 3D screening mammo w/cad, [facility]. 06/05/2023 Bilateral MG 3D screening mammo w/cad, [facility]. Tissue Density: The breasts are heterogeneously dense, which may obscure small masses. Findings: Analyzed By CAD. There is no suspicious group of microcalcifications or new suspicious mass in either breast. Overall Assessment: Negative, BI-RAD 1 Management: Screening Mammogram of both breasts in 1 year. . Patient should continue monthly self-breast exams. A clinical breast exam by your physician is recommended on an annual basis. This exam should not preclude additional follow-up of suspicious palpable abnormalities. Note on Farrah scores and lifetime risk: 1. A Farrah score greater than 3% is considered moderate risk. If this is the case, consider specialist referral to assess eligibility for a risk reducing agent. 2. If overall lifetime risk for the development of breast cancer is 20% or higher, the patient may qualify for future screening with alternating mammogram and breast MRI. [facility], , 06/20/2024 7:47 AM. Electronically signed and approved by: Ollie Genao M.D. Radiologis
== END | disposition home or self-care (01) ==
LOC: RADMAMWWP 07:05
PROVIDERS: ATTEND Family Medicine
DX: Z12.31 Encounter for screening mammogram for malignant neoplasm of breast (principal); R92.333 Mammographic heterogeneous density, bilateral breasts; Z78.0 Asymptomatic menopausal state
CPT/HCPCS: 77063; 77067